=== PATIENT | female | born 1995 | race Caucasian/White ===

== ENCOUNTER 2019-03-10 18:01 | Observation (INO) | payer BC ==
[~2019-03-10] VITALS: Ht 160 cm; Wt 111.1 kg
== END 2019-03-10 18:45 | disposition home or self-care (01) ==
LOC: SPU 18:01
PROVIDERS: ADMIT Obstetrics & Gynecology; ATTEND Obstetrics & Gynecology
DX: O26.893 Other specified pregnancy related conditions, third trimester (principal); N89.8 Other specified noninflammatory disorders of vagina; Z3A.37 37 weeks gestation of pregnancy
CPT/HCPCS: G0378

== ENCOUNTER 2019-03-14 21:04 | Inpatient (IN) | payer BC ==
[~2019-03-14] VITALS: Ht 160 cm; Wt 111.1 kg
[2019-03-14] MEDS ORDERED: OXYTOCIN/0.9 % SODIUM CHLORIDE 1,000 ML IV SCH (23:58)
[2019-03-14] MEDS ORDERED: LR 1,000 ML IV ONE (23:58)
[2019-03-15] MEDS ORDERED: NALBUPHINE HCL 10 MG/ML AMP IVP PRN
[2019-03-15] MEDS ORDERED: TERBUTALINE SULFATE 1 MG/ML VIAL SUBCUT ONE
[2019-03-15] MEDS: LR 1,000 ML IV SCH ×4 (00:50→22:56)
[2019-03-15 00:52] LABS: BASOPHILS % (AUTO) 0.2 % (0.0-2.0); EOSINOPHILS % (AUTO) 0.3 % (0.0-4.0); HEMATOCRIT 37.2 % (36-48); HEMOGLOBIN 12.4 g/dL (12.0-16.0); LYMPHOCYTES # (AUTO) 2.8 K/uL (1.0-5.5); LYMPHOCYTES % (AUTO) 20.6 % (20.5-51.5); MEAN CORPUSCULAR HEMOGLOBIN 30 pg (27-31); MEAN CORPUSCULAR HGB CONC 33 % (32-36); MEAN CORPUSCULAR VOLUME 91 fL (79.0-98.0); MONOCYTES # (AUTO) 0.8 K/uL (0.0-1.0); MONOCYTES % (AUTO) 5.6 % (1.7-9.3); NEUTROPHILS # (AUTO) 10.1 K/uL (1.8-7.7); NEUTROPHILS % (AUTO) 73.3 % (40.0-70.0); PLATELET COUNT (AUTO) 130 K/uL (130-430); RED CELL DISTRIBUTION WIDTH 14.6 % (9.0-15.0); WHITE BLOOD COUNT (AUTO) 13.7 K/uL (4.8-10.8)
[2019-03-15] MEDS ORDERED: fentaNYL CITRATE/PF 100 MCG/2 ML AMP ONE ×2 (05:16→10:33)
[2019-03-15] MEDS ORDERED: ROPIVACAINE HCL/PF 0.2% 100 ML ONE (05:17)
[2019-03-15] MEDS ORDERED: ROPIVACAINE HCL/PF 0.2% 200 ML ONE (10:33)
[2019-03-15] MEDS ORDERED: LR 500 ML IV ONE ×2 (11:12)
[2019-03-15] MEDS ORDERED: FENT2mCg/mL-ROPIVA0.2%/NS EPID 200 ML EP SCH (11:15)
[2019-03-15] MEDS ORDERED: fentaNYL CITRATE/PF 100 MCG/2 ML AMP EP ONE ×2 (11:15)
[2019-03-15] MEDS ORDERED: ePHEDrine sulfate 50 MG/ML VIAL IVP PRN ×2 (11:15)
[2019-03-15] MEDS ORDERED: ROPIVACAINE 40 MG/20 ML AMP EP ONE (16:46)
[2019-03-15] MEDS ORDERED: LIDOCAINE MPF 2% 5mL VIAL INJ ONE ×2 (16:53→16:55)
[2019-03-15] MEDS ORDERED: AMPICILLIN SODIUM 2 GM in NS 100 ML IV ONE (17:15)
[2019-03-15] MEDS ORDERED: OXYTOCIN 30 UNIT in LR 1,000 ML IV ONE (19:15)
[2019-03-15] MEDS ORDERED: OXYTOCIN 10 UNIT/ML VIAL ONE (20:36)
[2019-03-15] MEDS ORDERED: METHYLERGONOVINE MALEATE 0.2 MG/ML AMP ONE (20:36)
[2019-03-15] MEDS ORDERED: LANOLIN 7 GM OINT. TP PRN (20:45)
[2019-03-15] MEDS ORDERED: DERMOPLAST SPRAY TP PRN (20:45)
[2019-03-15] MEDS ORDERED: DOCUSATE SODIUM 100 MG CAPSULE PO PRN (20:45)
[2019-03-15] MEDS ORDERED: WITCH HAZEL LEAF 1 MED.PAD MED.PAD TP PRN (20:45)
[2019-03-15] MEDS ORDERED: OXYCODONE/ACETAMINOPHEN 5-325 TABLET PO PRN ×2 (20:45)
[2019-03-15] MEDS ORDERED: SENNOSIDES/DOCUSATE SODIUM 1 TAB TABLET(SENOKOT-S) PO PRN (20:45)
[2019-03-15] MEDS ORDERED: TEMAZEPAM 15 MG CAPSULE PO PRN (21:00)
[2019-03-15] MEDS ORDERED: AMPICILLIN SODIUM 1 GM in NS 50 ML IV SCH (21:00)
[2019-03-15] MEDS ORDERED: METHYLERGONOVINE MALEATE 0.2 MG/ML AMP IM ONE (21:15)
[2019-03-16 07:18] LABS: BASOPHILS % (AUTO) 0.1 % (0.0-2.0); EOSINOPHILS % (AUTO) 0.2 % (0.0-4.0); HEMATOCRIT 30.2 % (36-48); LYMPHOCYTES # (AUTO) 3.4 K/uL (1.0-5.5); LYMPHOCYTES % (AUTO) 17.2 % (20.5-51.5); MEAN CORPUSCULAR HEMOGLOBIN 30 pg (27-31); MEAN CORPUSCULAR HGB CONC 33 % (32-36); MEAN CORPUSCULAR VOLUME 91 fL (79.0-98.0); MONOCYTES # (AUTO) 1.2 K/uL (0.0-1.0); NEUTROPHILS % (AUTO) 76.5 % (40.0-70.0); PLATELET COUNT (AUTO) 102 K/uL (130-430); RED BLOOD CELL COUNT(AUTO) 3.31 MIL/uL (4.2-6.2); RED CELL DISTRIBUTION WIDTH 14.6 % (9.0-15.0); WHITE BLOOD COUNT (AUTO) 19.6 K/uL (4.8-10.8)
[2019-03-16] MEDS: IBUPROFEN 800 MG TABLET PO PRN (09:35)
--- NOTE | 2019-03-16 14:18 | NUR ---
Dietitian Recommendations * Recommend continuing regular diet * and general healthy nutrition education JOSIE, RD Please refer to Nutrition Assessment for details. Addendum: 03/16/19 at [address] Amended: Links added.
[2019-03-17] MEDS ORDERED: IBUP-1971 PO (05:31)
[2019-03-17] MEDS ORDERED: MINERAL OIL 30 ML UDC PO ONE (07:07)
[2019-03-17] MEDS: IBUPROFEN 800 MG TABLET PO PRN ×2 (12:23→16:58)
== END 2019-03-17 17:00 | disposition home or self-care (01) | DRG 806 ==
LOC: SPU 21:04 → OBSVTOIN 23:50 → SPU 03-16 10:29
PROVIDERS: ADMIT Obstetrics & Gynecology; ATTEND Obstetrics & Gynecology
PROC: 10E0XZZ Delivery of Products of Conception, External Approach (ICD-10-PCS; principal; 2019-03-15)
PROC: 3E0R3BZ Introduction of Anesthetic Agent into Spinal Canal, Percutaneous Approach (ICD-10-PCS; 2019-03-15)
PROC: 00HU33Z Insertion of Infusion Device into Spinal Canal, Percutaneous Approach (ICD-10-PCS; 2019-03-15)
PROC: 0KQM0ZZ Repair Perineum Muscle, Open Approach (ICD-10-PCS; 2019-03-15)
DX: O13.4 Gestational [pregnancy-induced] hypertension without significant proteinuria, complicating childbirth (principal); R71.0 Precipitous drop in hematocrit; Z37.0 Single live birth; O70.1 Second degree perineal laceration during delivery; Z3A.38 38 weeks gestation of pregnancy; O99.214 Obesity complicating childbirth; E66.01 Morbid (severe) obesity due to excess calories
CPT/HCPCS: 36415; 76805-TC; 81002-TC; 85025; 86592; 86886; 86900; 86901; 94760; G0378; J0290; J2001; J2210; J2300; J2590; J2795; J3010; J7120